=== PATIENT | female | born 1960 | race Caucasian/White ===

== ENCOUNTER 2017-07-17 19:19 | Inpatient (IN) | payer MEDICARE ==
[~2017-07-17] VITALS: Ht 162.6 cm; Wt 60.0 kg
[2017-07-17 20:37] LABS: BASOPHILS % (AUTO) 0.5 % (0.0-2.0); EOSINOPHILS % (AUTO) 0.8 % (1.0-6.0); HEMATOCRIT 39.7 % (36-46); HEMOGLOBIN 13.6 g/dL (12.0-16.0); LYMPHOCYTES # (AUTO) 2.6 K/uL (1.0-4.8); LYMPHOCYTES % (AUTO) 30.1 % (22.0-44.0); MEAN CORPUSCULAR HEMOGLOBIN 33.9 pg (26.0-34.0); MEAN CORPUSCULAR HGB CONC 34.3 G/dL (31.0-37.0); MEAN CORPUSCULAR VOLUME 99 fL (80-100); MONOCYTES # (AUTO) 0.6 K/uL (0.1-1.0); MONOCYTES % (AUTO) 6.9 % (2.0-9.0); NEUTROPHILS # (AUTO) 5.4 K/uL (1.8-7.7); NEUTROPHILS % (AUTO) 61.7 % (40.0-70.0); PLATELET COUNT (AUTO) 365 K/uL (150-450); RED BLOOD CELL COUNT(AUTO) 4.02 MIL/uL (4.00-5.20); RED CELL DISTRIBUTION WIDTH 14.3 % (11.5-14.5)
[2017-07-17 20:48] LABS: ANION GAP 9 mmol/L (8-16); CARBON DIOXIDE 29 mmol/L (22-29); CHLORIDE 106 mmol/L (98-107); CREATININE 1.12 mg/dL (0.60-1.30); GLOMERULAR FILTR. RATE CALC 50 mL/min (>60); GLUCOSE,RANDOM 97 mg/dL (70-110); POTASSIUM 3.9 mmol/L (3.5-5.1); SODIUM SERUM 144 mmol/L (136-145); UREA NITROGEN, BLOOD 7 mg/dL (7-18)
[2017-07-17 20:53] LABS: ALANINE AMINOTRANSFERASE 33 U/L (12-78); ALBUMIN 3.9 g/dL (3.4-5.0); ALKALINE PHOSPHATASE 93 U/L (46-116); ASPARTATE AMINOTRANSFERASE 27 U/L (15-37); BILIRUBIN,TOTAL 0.3 mg/dL (0.1-1.0); TOTAL PROTEIN, SERUM 6.9 g/dL (6.4-8.2)
[2017-07-17 21:31] LABS: AMPHET/METH SCREEN,URINE NEGATIVE (NEGATIVE); BARBITURATE SCREEN, URINE NEGATIVE (NEGATIVE); BENZODIAZEPINES SCREEN,URINE POSITIVE (NEGATIVE); CANNABINOID SCREEN,URINE NEGATIVE (NEGATIVE); COCAINE SCREEN,URINE NEGATIVE (NEGATIVE); METHADONE SCREEN, URINE NEGATIVE (NEGATIVE); OPIATE SCREEN,URINE NEGATIVE (NEGATIVE); PHENCYCLIDINE SCREEN,URINE NEGATIVE (NEGATIVE)
[2017-07-17] MEDS ORDERED: DiphenhydrAMINE HCL 25 MG CAPSULE PO ONE (21:45)
[2017-07-17] MEDS ORDERED: LORazepam 1 MG TABLET PO ONE (21:45)
[2017-07-17] MEDS ORDERED: GABAPENTIN 100 MG CAPSULE PO ONE (21:45)
[2017-07-18] MEDS ORDERED: PNEUMOCOCCAL VACCINE POLYVALENT 0.5 ML VIAL [PPSV23] IM ONE (00:30)
[2017-07-18] MEDS ORDERED: HALOPERIDOL LACTATE 5 MG/ML VIAL IM ONE (06:00)
[2017-07-18] MEDS ORDERED: LORazepam 2 MG/ML VIAL IM ONE (06:00)
[2017-07-18] MEDS ORDERED: DiphenhydrAMINE HCL 50 MG/ML VIAL IM ONE (06:00)
[2017-07-18] MEDS ORDERED: HALOPERIDOL LACTATE 5 MG/ML VIAL ONE (06:05)
[2017-07-18] MEDS ORDERED: DiphenhydrAMINE HCL 50 MG/ML VIAL ONE (06:05)
[2017-07-18] MEDS ORDERED: LORazepam 2 MG/ML VIAL ONE (06:05)
[2017-07-18 06:08] VITALS: BP 107/61
[2017-07-18 08:09] VITALS: BP 107/69
[2017-07-18] MEDS: GABAPENTIN 300 MG CAPSULE PO SCH (16:30)
[2017-07-18 21:12] VITALS: BP 110/70
[2017-07-19 03:44] VITALS: BP 101/75
[2017-07-19] MEDS ORDERED: ACETAMINOPHEN 325 MG TABLET PO PRN (06:30)
[2017-07-19] MEDS ORDERED: IBUPROFEN 400 MG TABLET PO PRN (06:30)
[2017-07-19 08:15] VITALS: BP 91/59
[2017-07-19] MEDS: DULoxetine HCL 60 MG CAPSULE PO SCH (09:00)
[2017-07-19] MEDS: GABAPENTIN 300 MG CAPSULE PO SCH ×3 (09:00→16:25)
[2017-07-19] MEDS: ARIPiprazole 5 MG TABLET PO SCH (09:00)
[2017-07-19] MEDS: LORazepam 1 MG TABLET PO PRN ×2 (16:25→22:26)
[2017-07-19] MEDS ORDERED: DiphenhydrAMINE HCL 25 MG CAPSULE PO ONE (18:00)
[2017-07-19] MEDS: ZOLPIDEM TARTRATE 10 MG TABLET PO PRN (20:23)
[2017-07-19 20:31] VITALS: BP 109/78
[2017-07-20] MEDS: LORazepam 1 MG TABLET PO PRN ×4 (03:53→16:53)
[2017-07-20 04:03] VITALS: BP 102/71
[2017-07-20] MEDS: HALOPERIDOL 5 MG TABLET PO PRN ×5 (04:49→16:53)
[2017-07-20 07:35] LABS: CHOL/HDL RATIO 2.8 (3.9-5.7); THYROID STIMULATING HORMONE 0.74 uIU/mL (0.36-3.74)
[2017-07-20 08:18] LABS: HEMOGLOBIN A1C 5.3 % (4.5-6.2)
[2017-07-20] MEDS: DULoxetine HCL 60 MG CAPSULE PO SCH (08:28)
[2017-07-20] MEDS: ARIPiprazole 5 MG TABLET PO SCH (08:29)
[2017-07-20 13:07] VITALS: BP 102/70
[2017-07-20 16:55] VITALS: BP 106/62
[2017-07-21] MEDS: LORazepam 1 MG TABLET PO PRN ×3 (08:38→23:55)
[2017-07-21] MEDS: ARIPiprazole 5 MG TABLET PO SCH (08:38)
[2017-07-21] MEDS: DULoxetine HCL 60 MG CAPSULE PO SCH (08:38)
[2017-07-21] MEDS: HALOPERIDOL 5 MG TABLET PO PRN ×3 (08:38→17:18)
[2017-07-21 10:25] VITALS: BP 86/67
[2017-07-21] MEDS ORDERED: DULO60CA44 PO (12:24)
[2017-07-21] MEDS ORDERED: ARIP5TAB8 PO (12:24)
[2017-07-21 16:35] VITALS: BP 91/67
[2017-07-21] MEDS: ZOLPIDEM TARTRATE 10 MG TABLET PO PRN (23:54)
[2017-07-22 03:40] VITALS: BP 98/69
[2017-07-22] MEDS: ARIPiprazole 5 MG TABLET PO SCH (08:15)
[2017-07-22] MEDS: DULoxetine HCL 60 MG CAPSULE PO SCH (08:15)
== END 2017-07-22 07:20 | disposition home or self-care (01) | DRG 885 ==
LOC: EMS 19:22 → AHU 23:19 → 3EI 07-18 19:51 → 3EX 07-19 21:05 → 3EI 07-20 19:22
DX: F33.2 Major depressive disorder, recurrent severe without psychotic features (principal); G35 Multiple sclerosis; R45.851 Suicidal ideations; Z59.0 Homelessness; Z79.899 Other long term (current) drug therapy; Z87.442 Personal history of urinary calculi; Z91.14 Patient's other noncompliance with medication regimen; Z88.2 Allergy status to sulfonamides; Z91.012 Allergy to eggs
CPT/HCPCS: 83036; 84443; 99285; G0480; J1200; J1630; J2060

== ENCOUNTER 2017-08-06 13:02 | Emergency (ER) | payer MEDICARE ==
[~2017-08-06] VITALS: Ht 162.6 cm; Wt 65.9 kg
[~2017-08-06 13:02] MED LIST: ARIP5TAB8 PO; DULO60CA44 PO
[2017-08-06] MEDS ORDERED: GABA-529 PO (13:15)
[2017-08-06] MEDS ORDERED: ARIPiprazole 5 MG TABLET PO ONE (14:15)
[2017-08-06] MEDS ORDERED: GABAPENTIN 100 MG CAPSULE PO ONE (14:15)
[2017-08-06] MEDS ORDERED: DULoxetine HCL 60 MG CAPSULE PO ONE (14:15)
[2017-08-06 15:00] VITALS: BP 122/73
== END 2017-08-06 15:02 | disposition home or self-care (01) ==
LOC: EMS 13:07
DX: Z76.0 Encounter for issue of repeat prescription (principal); F31.9 Bipolar disorder, unspecified; Z91.012 Allergy to eggs; Z88.2 Allergy status to sulfonamides; Z88.5 Allergy status to narcotic agent
CPT/HCPCS: 99284